=== PATIENT | male | born 1940 | race Caucasian/White ===

== ENCOUNTER 2024-03-17 11:59 | Emergency (ER) | payer OTHER ==
[~2024-03-17] VITALS: Ht 165.1 cm; Wt 69.4 kg
[~2024-03-17 11:59] MED LIST: ATOR10TA PO; BENA5TAB36 PO; METF-431 PO; METO100T99 PO; OMEP20TC9 PO; [UNRECOGNIZED DRUG - CODE] PO
[2024-03-17 12:15] VITALS: BP 144/59; PULSE 72; RESP 16; TEMP 98.1; O2SAT 96
[2024-03-17] MEDS ORDERED: BACITRACIN OINT 500 UNITS/GM PKT TP ONE (14:02)
[2024-03-17] MEDS: BACITRACIN OINT 500 UNITS/GM PKT TP ONE (14:28)
[2024-03-17] MEDS ORDERED: BACI-418 TP (15:26)
[2024-03-17] MEDS ORDERED: ACET-10509 PO (15:26)
[2024-03-17 16:01] VITALS: BP 137/72; PULSE 70; RESP 15; TEMP 98.1; O2SAT 96
== END 2024-03-17 15:40 | disposition home or self-care (01) ==
LOC: MED 11:59
DX: S40.011A Contusion of right shoulder, initial encounter (principal); S60.221A Contusion of right hand, initial encounter; S70.01XA Contusion of right hip, initial encounter; S50.311A Abrasion of right elbow, initial encounter; K21.9 Gastro-esophageal reflux disease without esophagitis; I25.10 Atherosclerotic heart disease of native coronary artery without angina pectoris; E11.9 Type 2 diabetes mellitus without complications; I10 Essential (primary) hypertension; Z79.84 Long term (current) use of oral hypoglycemic drugs; Z79.899 Other long term (current) drug therapy; Z88.5 Allergy status to narcotic agent; W01.0XXA Fall on same level from slipping, tripping and stumbling without subsequent striking against object, initial encounter; Y93.89 Activity, other specified; Y92.481 Parking lot as the place of occurrence of the external cause; Y99.8 Other external cause status
CPT/HCPCS: 73030; 73090; 73130; 73502; 99284